=== PATIENT | male | born 1950 | race Caucasian/White ===

== ENCOUNTER 2021-09-25 16:12 | Inpatient (IN) ==
[~2021-09-25 16:12] MED LIST: DEXTROSE 50% 25 GM/50 ML SYRINGE IV PRN; GLUCAGON 1 MG VIAL IM PRN; MORPHINE 2 MG/1 ML SYRINGE IV PRN; NITROGLYCERIN SL 0.4 MG TABLET SL PRN; PANTOPRAZOLE 40 MG TABLET PO ONE
[2021-09-25 17:15] LABS: Eosinophils # 0.2 10*3/uL (0.0-0.87); Eosinophils % 2.6 % (0.00-10.9); Hematocrit 35.5 VOL% (42.0-52.0); Hemoglobin 11.7 GM/DL (14.0-18.0); Immature Granulocytes % 0.4 %; Immature Granulocytes Absolute 0.02 #; Lymphocytes # 2.4 10*3/uL (1.4-4.0); Lymphocytes % 42.7 % (21.2-54.2); Monocytes % 9.8 % (1.7-12.7); Neutrophils % 44.5 % (38.7-73.9); Platelet Count 169 T/CUMM (130-400); Red Blood Count 3.48 MC/CUMM (3.8-5.5); Red Cell Distribution Width 13.2 % (9.3-17.3); White Blood Count 5.7 T/CUMM (4-12)
[2021-09-25 17:42] LABS: Alanine Aminotransferase 22 U/L (16-61); Albumin 3.5 G/DL (3.4-5.0); Alkaline Phosphatase 106 U/L (45-117); Aspartate Amino Transferase 27 U/L (0-37); Bilirubin,Total < 0.39 MG/DL (0.20-1.00); Blood Urea Nitrogen 14 MG/DL (7-18); Calcium 8.6 MG/DL (8.5-10.1); Carbon Dioxide 26 MMOL/L (21-32); Estimated Glom Filtration Rate 64 ML/MIN; Glucose 103 MG/DL (74-106); Osmolality,Calculated 277.5 MOS/KG (273-304); Potassium 3.6 MMOL/L (3.5-5.1); Sodium 139 MMOL/L (136-145); Total Protein 6.5 G/DL (6.4-8.2)
[2021-09-25] MEDS: CHLORHEXIDINE 4% SOLN 118 ML BOTTLE TOP SCH ×2 (18:05→21:02)
[2021-09-25] MEDS: CHLORHEXIDINE 0.12% ORAL RINSE 60 ML BOTTLE SWISH/SPIT SCH (21:02)
[2021-09-25] MEDS ORDERED: ALUMINUM/MAGNES/SIMETH MAX STR 30 ML UDCUP PO PRN (22:50)
[2021-09-25] MEDS ORDERED: PANTOPRAZOLE 40 MG TABLET PO ONE (23:05)
[2021-09-26] MEDS ORDERED: PAPAVERINE 60 MG/2 ML VIAL ONE (04:14)
[2021-09-26] MEDS ORDERED: VANCOMYCIN 1,000 MG VIAL ONE (04:15)
[2021-09-26] MEDS ORDERED: VANCOMYCIN 500 MG VIAL ONE (04:15)
[2021-09-26 04:22] LABS: ABG Base Excess 1.4 MMOL/L (-2.5-2.5); ABG HCO3 25.4 MMOL/L (20-26); ABG Oxygen Saturation 97.2 % (95-100); ABG PCO2 37.9 MM HG (35-48); ABG PH 7.444 (7.35-7.45); ABG PO2 92.8 MM HG (80-95); ABG TCO2 26.6 MMOL/L (23-27)
[2021-09-26] MEDS ORDERED: ETOMIDATE 40 MG/20 ML VIAL IV ONE (04:53)
[2021-09-26] MEDS ORDERED: SODIUM CHLORIDE 0.9% 200 ML IV ONE (04:53)
[2021-09-26] MEDS ORDERED: SODIUM CHLORIDE 0.9% 250 ML IV ONE (04:53)
[2021-09-26] MEDS ORDERED: AMINOCAPROIC ACID 5,000 MG/20 ML VIAL ONE (04:53)
[2021-09-26] MEDS ORDERED: MIDAZOLAM 10 MG/2 ML VIAL ONE ×4 (04:53→07:57)
[2021-09-26] MEDS ORDERED: VECURONIUM 10 MG VIAL IV ONE (04:53)
[2021-09-26] MEDS ORDERED: CALCIUM CHLORIDE 1,000 MG/10 ML VIAL IV ONE ×3 (04:53→12:16)
[2021-09-26] MEDS ORDERED: ePHEDrine 50 MG/ML VIAL ONE (04:53)
[2021-09-26] MEDS ORDERED: NITROGLYCERIN DRIP 50 MG/250 ML BOTTLE IV ONE ×2 (04:53→20:12)
[2021-09-26] MEDS ORDERED: LIDOCAINE 2% 5 ML VIAL ONE ×2 (04:53→11:31)
[2021-09-26] MEDS ORDERED: PHENYLEPHRINE 10 MG/1 ML VIAL IV ONE (04:54)
[2021-09-26] MEDS ORDERED: SUFentanil 250 MCG/5 ML AMP ONE ×3 (04:54→09:09)
[2021-09-26] MEDS ORDERED: CEFUROXIME INJ 1,500 MG in SODIUM CHLORIDE 0.9% 100 ML IV ONE (05:00)
[2021-09-26] MEDS ORDERED: DIAZEPAM 5 MG TABLET PO ONE (06:00)
[2021-09-26] MEDS ORDERED: FAMOTIDINE 20 MG TABLET PO ONE (06:00)
[2021-09-26] MEDS ORDERED: GABAPENTIN 400 MG CAPSULE PO ONE (06:00)
[2021-09-26 07:46] LABS: ABG Base Excess 1.4 MMOL/L (-2.5-2.5); ABG HCO3 25.7 MMOL/L (20-26); ABG PH 7.506 (7.35-7.45); ABG TCO2 21.2 MMOL/L (23-27); Glucose Heart Surgery 102 MG/DL (74-106); Hematocrit Heart Surgery 34.3 PERCENT (42-52); Hemoglobin Heart Surgery 11.1 G/DL (14.0-18.0); Ionized Calcium Arterial 1.07 MMOL/L (1.21-1.46); PH Patient Temp Arterial 7.506; Patient Temperature 37 CELCIUS; Potassium Heart/CVR 3.3 MMOL/L (3.5-5.1); Sodium Heart/CVR 141 MMOL/L (135-145)
[2021-09-26] MEDS ORDERED: MINERAL OIL/PETROLATUM OPH OINT 3.5 GM TUBE ONE (08:19)
[2021-09-26 08:20] LABS: Bilirubin,Urine Negative (Negative); Blood, Urine Negative (Negative); Glucose,Urine (UA) Negative (Negative); Ketones,Urine Negative (Negative); Nitrite,Urine Negative (Negative); Protein,Urine Negative; RBC,Urine <1 /HPF (0-4); Urine Appearance CLEAR (Clear); Urine Color Straw (Yellow); Urine Specific Gravity 1.008 (1.001-1.035); Urine Urobilinogen < 2.0 EU/DL (0.2-1.0)
[2021-09-26] MEDS ORDERED: PHENYLEPHRINE DRIP 40 MG/250 ML PREMIX IV ONE (09:06)
[2021-09-26] MEDS ORDERED: POTASSIUM CHLORIDE RIDER 20 MEQ/100 ML PREMIX IV ONE (09:06)
[2021-09-26] MEDS ORDERED: ALBUMIN 5% 25.0 GM/500 ML VIAL IV ONE (09:06)
[2021-09-26 09:20] LABS: Hematocrit Heart Surgery 22.9 PERCENT (42-52); Hemoglobin Heart Surgery 7.3 G/DL (14.0-18.0); PCO2 Patient Temp Venous 35.7 MM HG; PH Patient Temp Venous 7.474; PO2 Patient Temp Venous 34.5 MM HG; Potassium Heart/CVR 4.2 MMOL/L (3.5-5.1); VBG Base Excess 2.8 MEQ/L (0-4); VBG HCO3 26.6 MEQ/L (24-28); VBG Oxygen Saturation 75.5 %; VBG PCO2 39.3 MMHG (41-51); VBG PH 7.444; VBG PO2 39.7 MMHG (17-40); VBG Total CO2 25.5 MMOL/L
[2021-09-26] MEDS: CHLORHEXIDINE 4% SOLN 118 ML BOTTLE TOP SCH (09:44)
[2021-09-26] MEDS: SODIUM CHLORIDE 0.9% 1,000 ML IV SCH ×2 (09:44→19:21)
[2021-09-26] MEDS: CHLORHEXIDINE 0.12% ORAL RINSE 60 ML BOTTLE SWISH/SPIT SCH ×2 (09:45→21:42)
[2021-09-26 09:50] LABS: Hematocrit Heart Surgery 27.2 PERCENT (42-52); Hemoglobin Heart Surgery 8.8 G/DL (14.0-18.0); PCO2 Patient Temp Venous 31.8 MM HG; PH Patient Temp Venous 7.515; PO2 Patient Temp Venous 35.1 MM HG; Potassium Heart/CVR 3.6 MMOL/L (3.5-5.1); VBG Base Excess 3.1 MEQ/L (0-4); VBG HCO3 26.9 MEQ/L (24-28); VBG Oxygen Saturation 80.5 %; VBG PCO2 36.7 MMHG (41-51); VBG PH 7.47; VBG PO2 43.2 MMHG (17-40); VBG Total CO2 24.7 MMOL/L
[2021-09-26] MEDS ORDERED: SEVOFLURANE 1 UNIT/15 MINUTE INH ONE (10:02)
[2021-09-26] MEDS ORDERED: AMIODARONE 150 MG/3 ML VIAL ONE ×2 (10:02→10:31)
[2021-09-26] MEDS ORDERED: HEPARIN 10,000 UNIT/10 ML VIAL ONE ×2 (10:03→11:32)
[2021-09-26] MEDS ORDERED: LACTATED RINGERS 1,000 ML IV ONE (10:04)
[2021-09-26] MEDS ORDERED: SODIUM CHLORIDE 0.9% 1,000 ML IV ONE (10:09)
[2021-09-26 10:25] LABS: Hematocrit Heart Surgery 28.1 PERCENT (42-52); Hemoglobin Heart Surgery 9.1 G/DL (14.0-18.0); PCO2 Patient Temp Venous 33.3 MM HG; PH Patient Temp Venous 7.505; PO2 Patient Temp Venous 34.7 MM HG; Potassium Heart/CVR 3.9 MMOL/L (3.5-5.1); VBG Base Excess 3.3 MEQ/L (0-4); VBG HCO3 26.9 MEQ/L (24-28); VBG Oxygen Saturation 70.4 %; VBG PCO2 33.3 MMHG (41-51); VBG PH 7.505; VBG PO2 34.7 MMHG (17-40); VBG Total CO2 24.2 MMOL/L
[2021-09-26] MEDS ORDERED: DEXTROSE 5% KCL 20 MEQ 20 MEQ/1,000 ML BAG IV ONE (11:31)
[2021-09-26] MEDS ORDERED: PROTAMINE SULFATE 250 MG/25 ML VIAL IV ONE (11:31)
[2021-09-26] MEDS ORDERED: ALBUMIN 25% 25 GM/100 ML VIAL IV ONE (11:31)
[2021-09-26] MEDS ORDERED: MAGNESIUM SULFATE 5 GM/10 ML VIAL IV ONE (11:31)
[2021-09-26] MEDS ORDERED: methylPREDNISolone SOD SUC 1,000 MG/8 ML VIAL ONE (11:31)
[2021-09-26 11:32] LABS: ABG HCO3 25.3 MMOL/L (20-26); ABG Oxygen Saturation 99.9 % (95-100); ABG PCO2 35.1 MM HG (35-48); ABG PH 7.455 (7.35-7.45); ABG TCO2 22.8 MMOL/L (23-27); Glucose Heart Surgery 172 MG/DL (74-106); Hematocrit Heart Surgery 26.8 PERCENT (42-52); Hemoglobin Heart Surgery 8.6 G/DL (14.0-18.0); Ionized Calcium Arterial 1.15 MMOL/L (1.21-1.46); PCO2 Patient Temp Arterial 35.1 MMHG; PH Patient Temp Arterial 7.455; Patient Temperature 37 CELCIUS; Potassium Heart/CVR 3.8 MMOL/L (3.5-5.1); Sodium Heart/CVR 142 MMOL/L (135-145)
[2021-09-26] MEDS ORDERED: SODIUM BICARBONATE 50 MEQ/50 ML VIAL IV ONE (11:32)
[2021-09-26] MEDS ORDERED: MANNITOL 12.5 GM/50 ML VIAL IV ONE (11:32)
[2021-09-26] MEDS ORDERED: FUROSEMIDE 20 MG/2 ML VIAL ONE (11:32)
[2021-09-26] MEDS ORDERED: POTASSIUM CHLORIDE 20 MEQ/10 ML VIAL ONE (11:32)
[2021-09-26] MEDS ORDERED: PROTAMINE SULFATE 50 MG/5 ML VIAL IV ONE ×2 (11:32→12:32)
[2021-09-26] MEDS ORDERED: AMIODARONE 450 MG/9 ML VIAL IV ONE (12:02)
[2021-09-26] MEDS: SODIUM CHLORIDE 0.45% 1,000 ML IV SCH ×2 (12:10)
[2021-09-26] MEDS: LACTATED RINGERS 1,000 ML IV PRN ×5 (12:15→21:51)
[2021-09-26] MEDS ORDERED: HydrOXYzine PAMOATE 25 MG CAPSULE PO PRN (12:25)
[2021-09-26] MEDS ORDERED: CALCIUM CHLORIDE 1,000 MG/10 ML SYRINGE IV PRN (12:26)
[2021-09-26] MEDS ORDERED: INSULIN REGULAR 100 UNIT/ML IV PRN (12:26)
[2021-09-26] MEDS ORDERED: PHENYLEPHRINE DRIP 40 MG/250 ML PREMIX IV PRN (12:26)
[2021-09-26] MEDS ORDERED: CHLORHEXIDINE 4% SOLN 118 ML BOTTLE TOP PRN (12:26)
[2021-09-26] MEDS ORDERED: VECURONIUM 10 MG VIAL IV PRN ×2 (12:26)
[2021-09-26] MEDS ORDERED: MORPHINE 10 MG/1 ML VIAL IV PRN (12:26)
[2021-09-26] MEDS ORDERED: MAGNESIUM SULF RIDER 2 GM/50 ML PREMIX IV PRN (12:26)
[2021-09-26] MEDS ORDERED: ONDANSETRON 4 MG/2 ML VIAL IV PRN (12:26)
[2021-09-26] MEDS ORDERED: INSULIN REGULAR 100 UNIT/ML IV ONE (12:26)
[2021-09-26] MEDS ORDERED: MAGNESIUM SULF RIDER 4 GM/100 ML PREMIX IV PRN (12:26)
[2021-09-26] MEDS ORDERED: INSULIN REGULAR DRIP 100 ML IV SCH (12:26)
[2021-09-26] MEDS ORDERED: MIDAZOLAM 10 MG/2 ML VIAL IV PRN (12:26)
[2021-09-26] MEDS ORDERED: ACETAMINOPHEN 650 MG SUPP RECTAL PRN (12:26)
[2021-09-26] MEDS ORDERED: NITROPRUSSIDE 100 MG in DEXTROSE 5% 250 ML IV PRN (12:26)
[2021-09-26] MEDS ORDERED: LACTATED RINGERS 250 ML IV PRN (12:26)
[2021-09-26] MEDS ORDERED: AMIODARONE INJ 450 MG in DEXTROSE 5% 241 ML IV SCH (12:30)
[2021-09-26] MEDS ORDERED: DEXTROSE 50% 25 GM/50 ML SYRINGE IV PRN ×2 (12:40→12:42)
[2021-09-26 12:45] LABS: Eosinophils % 0.2 % (0.00-10.9); Hemoglobin 9.6 GM/DL (14.0-18.0); Immature Granulocytes % 0.5 %; Immature Granulocytes Absolute 0.03 #; Lymphocytes # 0.8 10*3/uL (1.4-4.0); Lymphocytes % 13.8 % (21.2-54.2); Mean Corpuscular HGB Conc 33.1 GM/DL (32-36); Mean Corpuscular Volume 102.1 FL (87-102); Mean Platelet Volume 10.1 FL (9.6-12.0); Neutrophils % 78.5 % (38.7-73.9); Platelet Count 115 T/CUMM (130-400); Red Blood Count 2.84 MC/CUMM (3.8-5.5); Red Cell Distribution Width 12.7 % (9.3-17.3); White Blood Count 5.9 T/CUMM (4-12)
[2021-09-26 12:46] LABS: ABG Base Excess 1.1 MMOL/L (-2.5-2.5); ABG HCO3 25.4 MMOL/L (20-26); ABG Oxygen Saturation 99.4 % (95-100); ABG PCO2 30.6 MM HG (35-48); ABG PH 7.498 (7.35-7.45); ABG TCO2 21.5 MMOL/L (23-27); Glucose Heart Surgery 150 MG/DL (74-106); Hematocrit Heart Surgery 31.1 PERCENT (42-52); Hemoglobin Heart Surgery 10.1 G/DL (14.0-18.0); Potassium Heart/CVR 3.5 MMOL/L (3.5-5.1)
[2021-09-26 12:57] LABS: INR 1.1; PT Patient Result 12.6 SECS (10.5-12.0); Partial Thromboplastin Time 24.2 SECS (23.8-32.1)
[2021-09-26 13:15] LABS: CKMB % 4.7 %
[2021-09-26] MEDS: POTASSIUM CHLORIDE RIDER 20 MEQ/100 ML PREMIX IV PRN ×5 (13:15→22:39)
[2021-09-26 13:22] LABS: Albumin 3.2 G/DL (3.4-5.0); Bilirubin,Total 1.5 MG/DL (0.20-1.00); Osmolality,Calculated 294.4 MOS/KG (273-304); Potassium 3.6 MMOL/L (3.5-5.1); Total Protein 5.4 G/DL (6.4-8.2)
[2021-09-26 13:28] LABS: High Sensitive Troponin I* 8025.6 ng/L (0-78)
[2021-09-26] MEDS: POTASSIUM CHLORIDE RIDER 10 MEQ/100 ML PREMIX IV PRN (13:45)
[2021-09-26] MEDS: QUEtiapine 100 MG TABLET PO SCH ×2 (13:48→21:40)
[2021-09-26] MEDS: OXcarbazepine 300 MG TABLET PO SCH ×2 (13:48→21:41)
[2021-09-26] MEDS: MIDAZOLAM 2 MG/2 ML VIAL IV PRN ×3 (16:15→20:19)
[2021-09-26] MEDS: ALBUMIN 5% 12.5 GM/250 ML VIAL IV PRN ×2 (16:20→16:50)
[2021-09-26] MEDS ORDERED: MORPHINE 2 MG/1 ML SYRINGE IV PRN (16:58)
[2021-09-26 17:30] LABS: ABG Base Excess 1.5 MMOL/L (-2.5-2.5); ABG HCO3 25.8 MMOL/L (20-26); ABG Oxygen Saturation 99.4 % (95-100); ABG PCO2 27.5 MM HG (35-48); ABG PH 7.542 (7.35-7.45); Glucose Heart Surgery 191 MG/DL (74-106); Hemoglobin Heart Surgery 7.7 G/DL (14.0-18.0); Potassium Heart/CVR 3.2 MMOL/L (3.5-5.1)
[2021-09-26] MEDS: AMIODARONE INJ 450 MG in DEXTROSE 5% 241 ML IV SCH (18:45)
[2021-09-26] MEDS ORDERED: FUROSEMIDE 40 MG/4 ML VIAL IV ONE (18:48)
[2021-09-26] MEDS ORDERED: HALOPERIDOL 5 MG/ML AMP IV ONE ×2 (18:48→23:59)
[2021-09-26] MEDS ORDERED: FUROSEMIDE 40 MG/4 ML VIAL ONE (18:56)
[2021-09-26] MEDS ORDERED: NITROGLYCERIN DRIP 50 MG/250 ML BOTTLE IV PRN (20:17)
[2021-09-26] MEDS ORDERED: DEXMEDETOMIDINE 200 MCG in SODIUM CHLORIDE 0.9% 48 ML IV PRN (20:27)
[2021-09-26] MEDS: CEFUROXIME INJ 1,500 MG in SODIUM CHLORIDE 0.9% 100 ML IV SCH (20:34)
[2021-09-26 21:29] LABS: ABG Base Excess -1.6 MMOL/L (-2.5-2.5); ABG HCO3 23.1 MMOL/L (20-26); ABG Oxygen Saturation 97.7 % (95-100); ABG PCO2 33.7 MM HG (35-48); ABG PH 7.427 (7.35-7.45); ABG TCO2 20.1 MMOL/L (23-27); Glucose Heart Surgery 225 MG/DL (74-106); Hematocrit Heart Surgery 31.6 PERCENT (42-52); Hemoglobin Heart Surgery 10.2 G/DL (14.0-18.0); Potassium Heart/CVR 3.1 MMOL/L (3.5-5.1)
[2021-09-26] MEDS: busPIRone 15 MG TABLET PO SCH (21:40)
[2021-09-26] MEDS: MIRTAZAPINE 15 MG TABLET PO SCH (21:42)
[2021-09-26 21:49] LABS: CKMB % 2.6 %; High Sensitive Troponin I* 7163.3 ng/L (0-78)
[2021-09-26] MEDS: CLORAZEPATE 3.75 MG TABLET PO PRN (21:50)
[2021-09-27 00:31] LABS: ABG Base Excess -0.5 MMOL/L (-2.5-2.5); ABG Oxygen Saturation 98.7 % (95-100); ABG PCO2 34.4 MM HG (35-48); ABG PH 7.438 (7.35-7.45); ABG TCO2 21.1 MMOL/L (23-27); Glucose Heart Surgery 170 MG/DL (74-106); Hematocrit Heart Surgery 30.5 PERCENT (42-52); Hemoglobin Heart Surgery 9.8 G/DL (14.0-18.0)
[2021-09-27] MEDS: POTASSIUM CHLORIDE RIDER 20 MEQ/100 ML PREMIX IV PRN ×3 (00:44→05:10)
[2021-09-27] MEDS ORDERED: FUROSEMIDE 40 MG/4 ML VIAL IV ONE (01:47)
[2021-09-27 04:18] LABS: ABG Base Excess 0.9 MMOL/L (-2.5-2.5); ABG HCO3 25.2 MMOL/L (20-26); ABG Oxygen Saturation 98.2 % (95-100); ABG PCO2 39.3 MM HG (35-48); ABG PH 7.418 (7.35-7.45); Glucose Heart Surgery 121 MG/DL (74-106); Hematocrit Heart Surgery 31.2 PERCENT (42-52); Hemoglobin Heart Surgery 10.1 G/DL (14.0-18.0); Potassium Heart/CVR 3.8 MMOL/L (3.5-5.1)
[2021-09-27 04:26] LABS: Basophils % 0.1 % (0.0-0.8); Hematocrit 29.3 VOL% (42.0-52.0); Hemoglobin 9.7 GM/DL (14.0-18.0); Immature Granulocytes % 0.5 %; Immature Granulocytes Absolute 0.06 #; Lymphocytes # 0.9 10*3/uL (1.4-4.0); Lymphocytes % 7.2 % (21.2-54.2); Mean Corpuscular HGB Conc 33.1 GM/DL (32-36); Mean Corpuscular Volume 96.4 FL (87-102); Mean Platelet Volume 10.6 FL (9.6-12.0); Monocytes % 8.3 % (1.7-12.7); Neutrophils % 83.9 % (38.7-73.9); Platelet Count 130 T/CUMM (130-400); Red Blood Count 3.04 MC/CUMM (3.8-5.5); Red Cell Distribution Width 16.1 % (9.3-17.3); White Blood Count 12.4 T/CUMM (4-12)
[2021-09-27 04:38] LABS: CKMB % 2.6 %
[2021-09-27 04:41] LABS: High Sensitive Troponin I* 5000.3 ng/L (0-78)
[2021-09-27 04:51] LABS: Albumin 3.5 G/DL (3.4-5.0); Bilirubin,Direct 0.23 MG/DL (0.0-0.20); Bilirubin,Total 0.9 MG/DL (0.20-1.00); Calcium 8.4 MG/DL (8.5-10.1); Hypochromasia 1+; Microcytosis 1+; Platelet Estimate Normal; Potassium 3.9 MMOL/L (3.5-5.1); Total Protein 5.5 G/DL (6.4-8.2)
[2021-09-27 05:33] LABS: ABG Base Excess -0.4 MMOL/L (-2.5-2.5); ABG HCO3 24.6 MMOL/L (20-26); ABG Oxygen Saturation 97.5 % (95-100); ABG PCO2 41.8 MM HG (35-48); ABG PH 7.388 (7.35-7.45); ABG PO2 106.3 MM HG (80-95); ABG TCO2 25.9 MMOL/L (23-27); Glucose Heart Surgery 127 MG/DL (74-106); Hemoglobin Heart Surgery 10.8 G/DL (14.0-18.0); Potassium Heart/CVR 4.9 MMOL/L (3.5-5.1)
[2021-09-27] MEDS: LEVOTHYROXINE 112 MCG TABLET PO SCH (06:33)
[2021-09-27] MEDS: CEFUROXIME INJ 1,500 MG in SODIUM CHLORIDE 0.9% 100 ML IV SCH ×2 (07:48→21:05)
[2021-09-27] MEDS: INSULIN REGULAR 100 UNIT/ML SUBCUT SCH ×5 (07:57→23:22)
[2021-09-27] MEDS: QUEtiapine 100 MG TABLET PO SCH ×2 (08:01→21:08)
[2021-09-27] MEDS: busPIRone 15 MG TABLET PO SCH ×2 (08:02→21:08)
[2021-09-27] MEDS: OXcarbazepine 300 MG TABLET PO SCH ×2 (08:05→21:08)
[2021-09-27] MEDS: CHLORHEXIDINE 0.12% ORAL RINSE 60 ML BOTTLE SWISH/SPIT SCH ×2 (08:05→21:13)
[2021-09-27] MEDS: ASPIRIN EC 325 MG TABLET PO SCH (09:23)
[2021-09-27] MEDS: AMIODARONE INJ 450 MG in DEXTROSE 5% 241 ML IV SCH (11:17)
[2021-09-27] MEDS: AMIODARONE 200 MG TABLET PO SCH ×2 (11:22→21:08)
[2021-09-27 13:02] LABS: CKMB % 2.3 %; High Sensitive Troponin I* 4072.2 ng/L (0-78)
[2021-09-27] MEDS: SODIUM CHLORIDE 0.45% 1,000 ML IV SCH ×2 (17:02→17:03)
[2021-09-27] MEDS: PANTOPRAZOLE 40 MG TABLET PO SCH (21:08)
[2021-09-27] MEDS: MIRTAZAPINE 15 MG TABLET PO SCH (21:08)
[2021-09-27] MEDS ORDERED: AMIODARONE INJ 100 MG in DEXTROSE 5% 100 ML IV ONE (22:04)
[2021-09-27] MEDS ORDERED: DILTIAZEM 50 MG/10 ML VIAL IV ONE (22:07)
[2021-09-27] MEDS ORDERED: DILTIAZEM 25 MG/5 ML VIAL IV ONE (22:09)
[2021-09-27] MEDS ORDERED: AMIODARONE INJ 450 MG in DEXTROSE 5% 241 ML IV SCH (22:30)
[2021-09-27] MEDS: DILTIAZEM INJ 100 MG in SODIUM CHLORIDE 0.9% 100 ML IV SCH (22:45)
[2021-09-28 04:09] LABS: Basophils % 0.1 % (0.0-0.8); Eosinophils # 0.1 10*3/uL (0.0-0.87); Eosinophils % 0.4 % (0.00-10.9); Hemoglobin 10.3 GM/DL (14.0-18.0); Immature Granulocytes % 1.4 %; Immature Granulocytes Absolute 0.19 #; Lymphocytes # 1.5 10*3/uL (1.4-4.0); Lymphocytes % 10.8 % (21.2-54.2); Mean Corpuscular HGB Conc 32.2 GM/DL (32-36); Mean Corpuscular Volume 99.4 FL (87-102); Mean Platelet Volume 10.5 FL (9.6-12.0); Monocytes % 7.9 % (1.7-12.7); Neutrophils % 79.4 % (38.7-73.9); Platelet Count 137 T/CUMM (130-400); Red Blood Count 3.22 MC/CUMM (3.8-5.5); Red Cell Distribution Width 16.8 % (9.3-17.3); White Blood Count 13.6 T/CUMM (4-12)
[2021-09-28] MEDS: INSULIN REGULAR 100 UNIT/ML SUBCUT SCH ×5 (04:16→19:52)
[2021-09-28 04:28] LABS: Albumin 3.3 G/DL (3.4-5.0); Bilirubin,Direct 0.25 MG/DL (0.0-0.20); Bilirubin,Total 0.8 MG/DL (0.20-1.00); Calcium 7.9 MG/DL (8.5-10.1); Osmolality,Calculated 282.4 MOS/KG (273-304); Potassium 3.8 MMOL/L (3.5-5.1); Total Protein 6.2 G/DL (6.4-8.2)
[2021-09-28] MEDS: DILTIAZEM INJ 100 MG in SODIUM CHLORIDE 0.9% 100 ML IV SCH (05:20)
[2021-09-28] MEDS: AMIODARONE INJ 450 MG in DEXTROSE 5% 241 ML IV SCH ×2 (05:50→20:54)
[2021-09-28] MEDS: LEVOTHYROXINE 112 MCG TABLET PO SCH (05:54)
[2021-09-28] MEDS: POTASSIUM CHLORIDE RIDER 20 MEQ/100 ML PREMIX IV PRN (07:12)
[2021-09-28] MEDS ORDERED: LACTULOSE 20 GM/30 ML UDCUP PO PRN (07:13)
[2021-09-28] MEDS ORDERED: oxyCODONE/ACETAMINOPHEN 5-325 MG TABLET PO PRN (07:13)
[2021-09-28] MEDS: QUEtiapine 100 MG TABLET PO SCH ×2 (08:02→20:49)
[2021-09-28] MEDS: POLYETHYLENE GLYCOL POWDER 17 GM PACK PO SCH (08:02)
[2021-09-28] MEDS: METOPROLOL TARTRATE 25 MG TABLET PO SCH ×2 (08:02→20:48)
[2021-09-28] MEDS: PANTOPRAZOLE 40 MG TABLET PO SCH ×2 (08:03→20:49)
[2021-09-28] MEDS: busPIRone 15 MG TABLET PO SCH ×2 (08:03→20:48)
[2021-09-28] MEDS: ASPIRIN EC 325 MG TABLET PO SCH (08:03)
[2021-09-28] MEDS: OXcarbazepine 300 MG TABLET PO SCH ×2 (08:03→20:48)
[2021-09-28] MEDS: POTASSIUM CHLORIDE RIDER 10 MEQ/100 ML PREMIX IV PRN (08:04)
[2021-09-28] MEDS: CHLORHEXIDINE 0.12% ORAL RINSE 60 ML BOTTLE SWISH/SPIT SCH ×2 (08:05→20:49)
[2021-09-28] MEDS: SODIUM CHLORIDE 0.45% 1,000 ML IV SCH ×3 (08:58→11:31)
[2021-09-28] MEDS: MIRTAZAPINE 15 MG TABLET PO SCH (20:48)
[2021-09-29] MEDS: INSULIN REGULAR 100 UNIT/ML SUBCUT SCH ×6 (00:08→19:35)
[2021-09-29] MEDS: AMIODARONE INJ 450 MG in DEXTROSE 5% 241 ML IV SCH (12:00)
[2021-09-29] MEDS: LEVOTHYROXINE 112 MCG TABLET PO SCH (13:54)
[2021-09-29] MEDS: ASPIRIN EC 325 MG TABLET PO SCH (13:54)
[2021-09-29] MEDS: busPIRone 15 MG TABLET PO SCH ×2 (13:55→21:04)
[2021-09-29] MEDS: METOPROLOL TARTRATE 25 MG TABLET PO SCH ×2 (13:55→21:03)
[2021-09-29] MEDS: POLYETHYLENE GLYCOL POWDER 17 GM PACK PO SCH (13:55)
[2021-09-29 13:56] LABS: Basophils % 0.1 % (0.0-0.8); Eosinophils # 0.2 10*3/uL (0.0-0.87); Eosinophils % 2.2 % (0.00-10.9); Hemoglobin 9.7 GM/DL (14.0-18.0); Immature Granulocytes % 0.5 %; Immature Granulocytes Absolute 0.05 #; Lymphocytes # 1.5 10*3/uL (1.4-4.0); Lymphocytes % 13.6 % (21.2-54.2); Mean Corpuscular HGB Conc 32.3 GM/DL (32-36); Mean Platelet Volume 10.8 FL (9.6-12.0); Monocytes % 8.1 % (1.7-12.7); Neutrophils % 75.5 % (38.7-73.9); Platelet Count 125 T/CUMM (130-400); Red Cell Distribution Width 16.4 % (9.3-17.3); White Blood Count 10.8 T/CUMM (4-12)
[2021-09-29] MEDS: QUEtiapine 100 MG TABLET PO SCH ×2 (13:56→21:03)
[2021-09-29] MEDS: CHLORHEXIDINE 0.12% ORAL RINSE 60 ML BOTTLE SWISH/SPIT SCH ×2 (13:56→21:05)
[2021-09-29] MEDS: PANTOPRAZOLE 40 MG TABLET PO SCH ×2 (13:56→21:04)
[2021-09-29] MEDS: OXcarbazepine 300 MG TABLET PO SCH ×2 (13:56→21:04)
[2021-09-29] MEDS: SODIUM CHLORIDE 0.45% 1,000 ML IV SCH ×2 (14:00)
[2021-09-29] MEDS ORDERED: MAGNESIUM SULF RIDER 2 GM/50 ML PREMIX IV PRN (14:14)
[2021-09-29] MEDS ORDERED: ACETAMINOPHEN 325 MG TABLET PO PRN (14:14)
[2021-09-29] MEDS ORDERED: ONDANSETRON 4 MG/2 ML VIAL IV PRN (14:14)
[2021-09-29] MEDS ORDERED: MAGNESIUM SULF RIDER 4 GM/100 ML PREMIX IV PRN (14:14)
[2021-09-29] MEDS ORDERED: MAGNESIUM HYDROXIDE SUSP 30 ML UDCUP PO PRN (14:14)
[2021-09-29] MEDS ORDERED: GLUCAGON 1 MG VIAL IM PRN (14:14)
[2021-09-29] MEDS ORDERED: ZALEPLON 5 MG CAPSULE PO PRN (14:14)
[2021-09-29] MEDS ORDERED: LORazepam 1 MG TABLET PO PRN (14:14)
[2021-09-29] MEDS ORDERED: SIMETHICONE CHEW 125 MG TABLET PO PRN (14:17)
[2021-09-29 14:26] LABS: Calcium 8.3 MG/DL (8.5-10.1)
[2021-09-29 14:27] LABS: Albumin 2.9 G/DL (3.4-5.0); Bilirubin,Direct 0.265 MG/DL (0.0-0.20); Bilirubin,Total 1.02 MG/DL (0.20-1.00); Osmolality,Calculated 275.8 MOS/KG (273-304); Potassium 3.9 MMOL/L (3.5-5.1); Total Protein 6.2 G/DL (6.4-8.2)
[2021-09-29] MEDS ORDERED: SODIUM CHLOR 0.45% KCL 20 MEQ 20 MEQ/1,000 ML BAG IV SCH (14:30)
[2021-09-29] MEDS ORDERED: DEXTROSE 50% 25 GM/50 ML SYRINGE IV PRN (14:37)
[2021-09-29] MEDS: AMIODARONE 200 MG TABLET PO SCH ×2 (14:52→21:03)
[2021-09-29] MEDS: ALUMINUM/MAGNES/SIMETH MAX STR 30 ML UDCUP PO PRN (14:54)
[2021-09-29] MEDS: MIRTAZAPINE 15 MG TABLET PO SCH (21:03)
[2021-09-29] MEDS: ATORVASTATIN 20 MG TABLET PO SCH (21:04)
[2021-09-30] MEDS: INSULIN REGULAR 100 UNIT/ML SUBCUT SCH ×3 (00:10→11:49)
[2021-09-30 04:28] LABS: Basophils % 0.1 % (0.0-0.8); Eosinophils # 0.2 10*3/uL (0.0-0.87); Hematocrit 30.3 VOL% (42.0-52.0); Hemoglobin 9.7 GM/DL (14.0-18.0); Immature Granulocytes % 0.5 %; Immature Granulocytes Absolute 0.04 #; Lymphocytes # 1.2 10*3/uL (1.4-4.0); Lymphocytes % 13.1 % (21.2-54.2); Mean Corpuscular Volume 100.3 FL (87-102); Mean Platelet Volume 11.3 FL (9.6-12.0); Monocytes % 11.1 % (1.7-12.7); Neutrophils % 73.2 % (38.7-73.9); Platelet Count 149 T/CUMM (130-400); Red Blood Count 3.02 MC/CUMM (3.8-5.5); White Blood Count 8.8 T/CUMM (4-12)
[2021-09-30 04:54] LABS: Alanine Aminotransferase 151 U/L (16-61); Albumin 2.7 G/DL (3.4-5.0); Alkaline Phosphatase 75 U/L (45-117); Aspartate Amino Transferase 164 U/L (0-37); Bilirubin,Indirect 0.4 MG/DL (0.0-1.0); Blood Urea Nitrogen 18 MG/DL (7-18); Calcium 8.1 MG/DL (8.5-10.1); Carbon Dioxide 27 MMOL/L (21-32); Estimated Glom Filtration Rate 108 ML/MIN; Glucose 110 MG/DL (74-106); Osmolality,Calculated 283.3 MOS/KG (273-304); Sodium 141 MMOL/L (136-145)
[2021-09-30 04:59] LABS: Calcium 8.4 MG/DL (8.5-10.1); Osmolality,Calculated 283.3 MOS/KG (273-304)
[2021-09-30] MEDS ORDERED: FUROSEMIDE 40 MG/4 ML VIAL IV ONE (06:00)
[2021-09-30] MEDS: LEVOTHYROXINE 112 MCG TABLET PO SCH (06:33)
[2021-09-30] MEDS: FERROUS SULFATE 325 MG TABLET PO SCH (08:47)
[2021-09-30] MEDS: METOPROLOL TARTRATE 25 MG TABLET PO SCH ×2 (08:47→20:09)
[2021-09-30] MEDS: MONTELUKAST 10 MG TABLET PO SCH (08:47)
[2021-09-30] MEDS: ASPIRIN EC 325 MG TABLET PO SCH (08:47)
[2021-09-30] MEDS: PANTOPRAZOLE 40 MG TABLET PO SCH ×2 (08:47→20:09)
[2021-09-30] MEDS: AMIODARONE 200 MG TABLET PO SCH ×2 (08:47→20:09)
[2021-09-30] MEDS: DOCUSATE SODIUM 100 MG CAPSULE PO SCH (08:47)
[2021-09-30] MEDS: TAMSULOSIN 0.4 MG CAPSULE PO SCH (08:47)
[2021-09-30] MEDS: OXcarbazepine 300 MG TABLET PO SCH ×2 (08:48→20:09)
[2021-09-30] MEDS: busPIRone 15 MG TABLET PO SCH ×2 (08:48→20:08)
[2021-09-30] MEDS: POLYETHYLENE GLYCOL POWDER 17 GM PACK PO SCH (08:48)
[2021-09-30] MEDS: CHLORHEXIDINE 0.12% ORAL RINSE 60 ML BOTTLE SWISH/SPIT SCH ×2 (09:15→20:10)
[2021-09-30] MEDS: QUEtiapine 100 MG TABLET PO SCH ×2 (12:24→20:09)
[2021-09-30] MEDS: CLORAZEPATE 3.75 MG TABLET PO PRN (16:42)
[2021-09-30] MEDS: ATORVASTATIN 20 MG TABLET PO SCH (20:08)
[2021-09-30] MEDS: MIRTAZAPINE 15 MG TABLET PO SCH (20:09)
[2021-10-01] MEDS: LEVOTHYROXINE 112 MCG TABLET PO SCH (05:37)
[2021-10-01 05:38] LABS: Alanine Aminotransferase 143 U/L (16-61); Albumin 2.5 G/DL (3.4-5.0); Alkaline Phosphatase 78 U/L (45-117); Aspartate Amino Transferase 115 U/L (0-37); Bilirubin,Indirect 0.7 MG/DL (0.0-1.0); Blood Urea Nitrogen 23 MG/DL (7-18); Calcium 8.1 MG/DL (8.5-10.1); Carbon Dioxide 28 MMOL/L (21-32); Estimated Glom Filtration Rate 105 ML/MIN; Glucose 106 MG/DL (74-106); Osmolality,Calculated 286.1 MOS/KG (273-304); Potassium 3.6 MMOL/L (3.5-5.1); Sodium 142 MMOL/L (136-145); Total Protein 5.8 G/DL (6.4-8.2)
[2021-10-01] MEDS: POLYETHYLENE GLYCOL POWDER 17 GM PACK PO SCH (08:56)
[2021-10-01] MEDS: OXcarbazepine 300 MG TABLET PO SCH ×2 (09:00→20:22)
[2021-10-01] MEDS: ASPIRIN EC 81 MG TABLET PO SCH (09:01)
[2021-10-01] MEDS: QUEtiapine 100 MG TABLET PO SCH ×2 (09:01→20:22)
[2021-10-01] MEDS: DOCUSATE SODIUM 100 MG CAPSULE PO SCH (09:01)
[2021-10-01] MEDS: POTASSIUM CHLORIDE 20 MEQ TABLET PO PRN (09:01)
[2021-10-01] MEDS: FERROUS SULFATE 325 MG TABLET PO SCH (09:01)
[2021-10-01] MEDS: TAMSULOSIN 0.4 MG CAPSULE PO SCH (09:01)
[2021-10-01] MEDS: busPIRone 15 MG TABLET PO SCH ×2 (09:01→20:22)
[2021-10-01] MEDS: METOPROLOL TARTRATE 25 MG TABLET PO SCH ×2 (09:01→20:23)
[2021-10-01] MEDS: PANTOPRAZOLE 40 MG TABLET PO SCH ×2 (09:01→20:23)
[2021-10-01] MEDS: ALUMINUM/MAGNES/SIMETH MAX STR 30 ML UDCUP PO PRN (09:02)
[2021-10-01] MEDS: CHLORHEXIDINE 0.12% ORAL RINSE 60 ML BOTTLE SWISH/SPIT SCH ×2 (09:02→20:31)
[2021-10-01] MEDS: AMIODARONE 200 MG TABLET PO SCH ×2 (09:02→20:23)
[2021-10-01] MEDS: MONTELUKAST 10 MG TABLET PO SCH (09:02)
[2021-10-01] MEDS ORDERED: AMIODARONE INJ 150 MG in DEXTROSE 5% 100 ML IV ONE (09:46)
[2021-10-01] MEDS: APIXABAN 5 MG TABLET PO SCH ×2 (11:35→20:22)
[2021-10-01] MEDS: MIRTAZAPINE 15 MG TABLET PO SCH (20:23)
[2021-10-01] MEDS: ATORVASTATIN 20 MG TABLET PO SCH (20:23)
[2021-10-02 05:30] LABS: Basophils % 0.1 % (0.0-0.8); Eosinophils # 0.2 10*3/uL (0.0-0.87); Eosinophils % 2.5 % (0.00-10.9); Hematocrit 30.5 VOL% (42.0-52.0); Hemoglobin 9.7 GM/DL (14.0-18.0); Immature Granulocytes % 0.5 %; Immature Granulocytes Absolute 0.04 #; Lymphocytes # 2.1 10*3/uL (1.4-4.0); Lymphocytes % 25.1 % (21.2-54.2); Mean Corpuscular HGB Conc 31.8 GM/DL (32-36); Mean Corpuscular Volume 99.3 FL (87-102); Mean Platelet Volume 10.4 FL (9.6-12.0); Monocytes % 11.4 % (1.7-12.7); Neutrophils % 60.4 % (38.7-73.9); Platelet Count 215 T/CUMM (130-400); Red Blood Count 3.07 MC/CUMM (3.8-5.5); Red Cell Distribution Width 15.7 % (9.3-17.3); White Blood Count 8.5 T/CUMM (4-12)
[2021-10-02 05:46] LABS: Blood Urea Nitrogen 21 MG/DL (7-18); Calcium 8.5 MG/DL (8.5-10.1); Carbon Dioxide 28 MMOL/L (21-32); Estimated Glom Filtration Rate 105 ML/MIN; Glucose 106 MG/DL (74-106); Osmolality,Calculated 279.5 MOS/KG (273-304); Sodium 139 MMOL/L (136-145)
[2021-10-02] MEDS: LEVOTHYROXINE 112 MCG TABLET PO SCH (06:03)
[2021-10-02] MEDS: POTASSIUM CHLORIDE 20 MEQ TABLET PO PRN (06:03)
[2021-10-02] MEDS: DOCUSATE SODIUM 100 MG CAPSULE PO SCH (08:57)
[2021-10-02] MEDS: APIXABAN 5 MG TABLET PO SCH ×2 (08:57→20:28)
[2021-10-02] MEDS: TAMSULOSIN 0.4 MG CAPSULE PO SCH (08:57)
[2021-10-02] MEDS: QUEtiapine 100 MG TABLET PO SCH ×2 (08:57→20:29)
[2021-10-02] MEDS: OXcarbazepine 300 MG TABLET PO SCH ×2 (08:57→20:29)
[2021-10-02] MEDS: FERROUS SULFATE 325 MG TABLET PO SCH (08:57)
[2021-10-02] MEDS: MONTELUKAST 10 MG TABLET PO SCH (08:58)
[2021-10-02] MEDS: POLYETHYLENE GLYCOL POWDER 17 GM PACK PO SCH (08:58)
[2021-10-02] MEDS: hydrALAZINE 25 MG TABLET PO SCH ×2 (08:58→20:29)
[2021-10-02] MEDS: busPIRone 15 MG TABLET PO SCH ×2 (08:58→20:28)
[2021-10-02] MEDS: METOPROLOL TARTRATE 25 MG TABLET PO SCH ×2 (08:58→20:29)
[2021-10-02] MEDS: AMIODARONE 200 MG TABLET PO SCH ×2 (08:58→20:28)
[2021-10-02] MEDS: ASPIRIN EC 81 MG TABLET PO SCH (08:58)
[2021-10-02] MEDS: PANTOPRAZOLE 40 MG TABLET PO SCH ×2 (08:58→20:29)
[2021-10-02] MEDS: CHLORHEXIDINE 0.12% ORAL RINSE 60 ML BOTTLE SWISH/SPIT SCH ×2 (08:59→20:29)
[2021-10-02] MEDS ORDERED: DILTIAZEM 30 MG TABLET PO SCH (09:00)
[2021-10-02] MEDS ORDERED: NICARDIPINE 30 MG PO SCH (09:00)
[2021-10-02] MEDS: DILTIAZEM 30 MG TABLET PO SCH ×3 (13:04→20:28)
[2021-10-02] MEDS: MIRTAZAPINE 15 MG TABLET PO SCH (20:28)
[2021-10-02] MEDS: ATORVASTATIN 20 MG TABLET PO SCH (20:29)
[2021-10-02] MEDS: ALUMINUM/MAGNES/SIMETH MAX STR 30 ML UDCUP PO PRN (23:22)
[2021-10-03 05:42] LABS: Basophils % 0.1 % (0.0-0.8); Eosinophils # 0.2 10*3/uL (0.0-0.87); Eosinophils % 2.1 % (0.00-10.9); Hematocrit 31.5 VOL% (42.0-52.0); Hemoglobin 9.9 GM/DL (14.0-18.0); Immature Granulocytes % 0.6 %; Immature Granulocytes Absolute 0.05 #; Lymphocytes # 1.8 10*3/uL (1.4-4.0); Lymphocytes % 22.6 % (21.2-54.2); Mean Corpuscular HGB Conc 31.4 GM/DL (32-36); Mean Corpuscular Volume 100.3 FL (87-102); Mean Platelet Volume 10.4 FL (9.6-12.0); Neutrophils % 63.6 % (38.7-73.9); Platelet Count 240 T/CUMM (130-400); Red Blood Count 3.14 MC/CUMM (3.8-5.5); Red Cell Distribution Width 15.8 % (9.3-17.3); White Blood Count 7.8 T/CUMM (4-12)
[2021-10-03] MEDS: LEVOTHYROXINE 112 MCG TABLET PO SCH (05:45)
[2021-10-03 06:20] LABS: Alanine Aminotransferase 93 U/L (16-61); Albumin 2.5 G/DL (3.4-5.0); Alkaline Phosphatase 82 U/L (45-117); Aspartate Amino Transferase 52 U/L (0-37); Bilirubin,Indirect 0.7 MG/DL (0.0-1.0); Blood Urea Nitrogen 18 MG/DL (7-18); Calcium 8.4 MG/DL (8.5-10.1); Carbon Dioxide 29 MMOL/L (21-32); Estimated Glom Filtration Rate 106 ML/MIN; Glucose 113 MG/DL (74-106); Osmolality,Calculated 283.3 MOS/KG (273-304); Potassium 3.8 MMOL/L (3.5-5.1); Sodium 141 MMOL/L (136-145); Total Protein 5.9 G/DL (6.4-8.2)
[2021-10-03 07:56] VITALS: BP 144/71
[2021-10-03] MEDS: PANTOPRAZOLE 40 MG TABLET PO SCH (09:08)
[2021-10-03] MEDS: APIXABAN 5 MG TABLET PO SCH (09:08)
[2021-10-03] MEDS: hydrALAZINE 25 MG TABLET PO SCH (09:08)
[2021-10-03] MEDS: QUEtiapine 100 MG TABLET PO SCH (09:08)
[2021-10-03] MEDS: DOCUSATE SODIUM 100 MG CAPSULE PO SCH (09:08)
[2021-10-03] MEDS: AMIODARONE 200 MG TABLET PO SCH (09:08)
[2021-10-03] MEDS: OXcarbazepine 300 MG TABLET PO SCH (09:09)
[2021-10-03] MEDS: busPIRone 15 MG TABLET PO SCH (09:09)
[2021-10-03] MEDS: ASPIRIN EC 81 MG TABLET PO SCH (09:09)
[2021-10-03] MEDS: POLYETHYLENE GLYCOL POWDER 17 GM PACK PO SCH (09:09)
[2021-10-03] MEDS: MONTELUKAST 10 MG TABLET PO SCH (09:09)
[2021-10-03] MEDS: DILTIAZEM 30 MG TABLET PO SCH (09:09)
[2021-10-03] MEDS: TAMSULOSIN 0.4 MG CAPSULE PO SCH (09:09)
[2021-10-03] MEDS: METOPROLOL TARTRATE 25 MG TABLET PO SCH (09:09)
[2021-10-03] MEDS: CHLORHEXIDINE 0.12% ORAL RINSE 60 ML BOTTLE SWISH/SPIT SCH (09:12)
[2021-10-03] MEDS: FERROUS SULFATE 325 MG TABLET PO SCH (09:12)
== END 2021-10-03 12:10 | disposition home health service (06) | DRG 236 ==
LOC: N.TELES 16:12 → N.CVR 09-26 11:57 → N.ICU 09-27 11:48 → N.TELES 10-02 16:51

== ENCOUNTER 2021-10-09 13:57 | Inpatient (IN) ==
[2021-10-09 15:05] LABS: Basophils % 0.1 % (0.0-0.8); Eosinophils % 0.2 % (0.00-10.9); Hematocrit 29.5 VOL% (42.0-52.0); Hemoglobin 9.3 GM/DL (14.0-18.0); Immature Granulocytes % 0.7 %; Immature Granulocytes Absolute 0.11 #; Lymphocytes # 1.3 10*3/uL (1.4-4.0); Lymphocytes % 8.9 % (21.2-54.2); Mean Corpuscular HGB Conc 31.5 GM/DL (32-36); Mean Corpuscular Volume 101.4 FL (87-102); Mean Platelet Volume 10.6 FL (9.6-12.0); Monocytes % 7.2 % (1.7-12.7); Neutrophils % 82.9 % (38.7-73.9); Platelet Count 381 T/CUMM (130-400); Red Blood Count 2.91 MC/CUMM (3.8-5.5); Red Cell Distribution Width 16.9 % (9.3-17.3)
[2021-10-09 15:19] LABS: Albumin 3.2 G/DL (3.4-5.0); Bilirubin,Total 0.5 MG/DL (0.20-1.00); Calcium 8.5 MG/DL (8.5-10.1); Osmolality,Calculated 267.7 MOS/KG (273-304); Total Protein 6.5 G/DL (6.4-8.2)
[2021-10-09 15:51] LABS: Bacteria,Urine Occasional /HPF (Few); Bilirubin,Urine Negative (Negative); Blood, Urine Negative (Negative); Glucose,Urine (UA) Negative (Negative); Ketones,Urine Negative (Negative); Mucus,Urine Few /LPF (Occasional); Nitrite,Urine Negative (Negative); Protein,Urine 30 MG/DL; Urine Appearance CLEAR (Clear); Urine Color Yellow (Yellow); Urine Specific Gravity 1.023 (1.001-1.035); Urine Urobilinogen < 2.0 EU/DL (<2.0)
[2021-10-09] MEDS ORDERED: cefTRIAXone 1,000 MG in SODIUM CHLORIDE 0.9% 100 ML IV STA (17:21)
[2021-10-09] MEDS ORDERED: ACETAMINOPHEN 325 MG TABLET PO PRN (17:43)
[2021-10-09] MEDS ORDERED: ONDANSETRON 4 MG/2 ML VIAL IV PRN (17:43)
[2021-10-09] MEDS ORDERED: ALBUTEROL/IPRATROPIUM 3 ML NEB RESP TX PRN (17:49)
[2021-10-09] MEDS: LEVOFLOXACIN INJ 750 MG/150 ML PREMIX IV SCH (18:20)
[2021-10-09] MEDS: PIPERACILLIN/TAZOBACTAM 3,375 MG in SODIUM CHLORIDE 0.9% 100 ML IV SCH (22:39)
[2021-10-10] MEDS ORDERED: oxyCODONE/ACETAMINOPHEN 5-325 MG TABLET PO PRN (01:29)
[2021-10-10] MEDS ORDERED: HydrOXYzine PAMOATE 25 MG CAPSULE PO PRN (01:29)
[2021-10-10] MEDS ORDERED: busPIRone 15 MG TABLET PO ONE (02:00)
[2021-10-10] MEDS: QUEtiapine 100 MG TABLET PO SCH ×2 (02:11→09:38)
[2021-10-10] MEDS: METOPROLOL TARTRATE 25 MG TABLET PO SCH ×2 (02:12→09:38)
[2021-10-10] MEDS: AMIODARONE 200 MG TABLET PO SCH ×2 (02:12→09:40)
[2021-10-10] MEDS: APIXABAN 5 MG TABLET PO SCH ×2 (02:12→09:37)
[2021-10-10] MEDS: OXcarbazepine 300 MG TABLET PO SCH ×2 (02:12→09:38)
[2021-10-10] MEDS: LORazepam 1 MG TABLET PO PRN ×3 (02:12→18:26)
[2021-10-10] MEDS ORDERED: DILTIAZEM 25 MG/5 ML VIAL IV ONE (03:13)
[2021-10-10] MEDS: PIPERACILLIN/TAZOBACTAM 3,375 MG in SODIUM CHLORIDE 0.9% 100 ML IV SCH ×2 (05:16→13:35)
[2021-10-10 06:29] LABS: Basophils % 0.1 % (0.0-0.8); Eosinophils # 0.1 10*3/uL (0.0-0.87); Eosinophils % 0.7 % (0.00-10.9); Hematocrit 29.5 VOL% (42.0-52.0); Hemoglobin 9.2 GM/DL (14.0-18.0); Immature Granulocytes % 0.5 %; Immature Granulocytes Absolute 0.07 #; Lymphocytes % 7.7 % (21.2-54.2); Mean Corpuscular HGB Conc 31.2 GM/DL (32-36); Mean Corpuscular Volume 101.7 FL (87-102); Mean Platelet Volume 10.3 FL (9.6-12.0); Monocytes % 7.5 % (1.7-12.7); Neutrophils % 83.5 % (38.7-73.9); Platelet Count 390 T/CUMM (130-400); Red Cell Distribution Width 16.8 % (9.3-17.3); White Blood Count 13.2 T/CUMM (4-12)
[2021-10-10] MEDS ORDERED: LEVOTHYROXINE 112 MCG TABLET PO SCH (06:30)
[2021-10-10 07:00] LABS: Albumin 2.9 G/DL (3.4-5.0); Bilirubin,Total 1.1 MG/DL (0.20-1.00); Calcium 8.3 MG/DL (8.5-10.1); Osmolality,Calculated 268.5 MOS/KG (273-304); Potassium 3.9 MMOL/L (3.5-5.1)
[2021-10-10] MEDS ORDERED: calcitrioL 0.25 MCG CAPSULE PO SCH (09:00)
[2021-10-10] MEDS ORDERED: DOCUSATE SODIUM 100 MG CAPSULE PO SCH (09:00)
[2021-10-10] MEDS ORDERED: PANTOPRAZOLE 40 MG TABLET PO SCH (09:00)
[2021-10-10] MEDS ORDERED: SUCRALFATE 1 GM TABLET PO SCH (09:00)
[2021-10-10] MEDS ORDERED: busPIRone 15 MG TABLET PO SCH (09:00)
[2021-10-10] MEDS ORDERED: MONTELUKAST 10 MG TABLET PO SCH (09:00)
[2021-10-10] MEDS ORDERED: TAMSULOSIN 0.4 MG CAPSULE PO SCH (09:00)
[2021-10-10] MEDS ORDERED: ASPIRIN EC 81 MG TABLET PO SCH (09:00)
[2021-10-10] MEDS ORDERED: hydrALAZINE 25 MG TABLET PO SCH (09:00)
[2021-10-10] MEDS ORDERED: FERROUS SULFATE 325 MG TABLET PO SCH (09:00)
[2021-10-10] MEDS: DILTIAZEM 30 MG TABLET PO SCH ×3 (09:39→17:17)
[2021-10-10] MEDS: [UNRECOGNIZED DRUG - OTHER] PO SCH ×2 (09:41→16:07)
[2021-10-10] MEDS ORDERED: ALUMINUM/MAGNES/SIMETH MAX STR 30 ML UDCUP PO PRN (12:04)
[2021-10-10] MEDS ORDERED: POLYETHYLENE GLYCOL POWDER 17 GM PACK PO SCH (12:30)
[2021-10-10] MEDS: LEVOFLOXACIN INJ 750 MG/150 ML PREMIX IV SCH (17:17)
[2021-10-10] MEDS ORDERED: MIRTAZAPINE 15 MG TABLET PO SCH (21:00)
[2021-10-10] MEDS ORDERED: ATORVASTATIN 20 MG TABLET PO SCH (21:00)
[2021-10-10] MEDS ORDERED: EPINEPHrine 1 MG/10 ML SYRINGE ONE (21:13)
[2021-10-10] MEDS ORDERED: SODIUM BICARBONATE 50 MEQ/50 ML SYRINGE IV ONE (21:13)
[2021-10-10 21:42] VITALS: BP 178/85
== END 2021-10-10 21:29 | disposition expired | DRG 194 ==
LOC: EDUNIT# → EDBD → N.ED 13:57 → N.EDINP 17:43 → N.3E 20:12
PROVIDERS: ADMIT Internal Medicine; ATTEND Internal Medicine